=== PATIENT | male | born 1970 | race African-American/Black ===

== ENCOUNTER 2019-09-03 00:53 | Emergency (ER) | payer MEDICAID, OTHER ==
[~2019-09-03] VITALS: Ht 180.3 cm; Wt 74.4 kg
[2019-09-03] MEDS ORDERED: TETANUS-DIPTH-ACEL PERTUSSIS 0.5ML SYRG IM ONE (01:15)
[2019-09-03] MEDS ORDERED: LIDOCAINE 1% HCL (LOCAL ANESTH.) INJ 20ML MDV IJ ONE (01:15)
[2019-09-03] MEDS ORDERED: cefTRIAXone 1GM/50ML D5W 50 ML IV ONE (01:15)
[2019-09-03] MEDS ORDERED: LIDOCAINE W/ EPINEPHRINE 1% 20ML VIAL ID ONE (01:30)
[2019-09-03] MEDS ORDERED: cefTRIAXone SOD 1,000 MG VL IM ONE (02:00)
[2019-09-03 05:52] VITALS: BP 128/74
== END 2019-09-03 05:50 | disposition home or self-care (01) ==
LOC: EDBD 00:53 → ER 00:58
DX: S11.91XA Laceration without foreign body of unspecified part of neck, initial encounter (principal); T79.7XXA Traumatic subcutaneous emphysema, initial encounter; J45.909 Unspecified asthma, uncomplicated; X99.1XXA Assault by knife, initial encounter; Y93.89 Activity, other specified; Y92.89 Other specified places as the place of occurrence of the external cause; Y99.8 Other external cause status
CPT/HCPCS: 12001; 70490; 90471; 90715; 96372; 99284; J0696